=== PATIENT | female | born 1960 | race Caucasian/White ===

== ENCOUNTER → 2025-03-29 | Outpatient (CLI) | payer OTHER ==
[~2025-03-29] MED LIST: ATOR10TA PO; DULO40CA2 PO; MELA5TAB66 PO; METO25TA4 PO; PANT40TA6 PO; TRAM50TA PO; TRAZ-163 PO
== END | disposition home or self-care (01) ==
LOC: RAD 16:01
PROVIDERS: ATTEND Orthopaedic Surgery
DX: M25.552 Pain in left hip (principal)
CPT/HCPCS: 73502